=== PATIENT | female | born 1980 | race African-American/Black ===

== ENCOUNTER 2021-02-10 17:25 | Emergency (ER) | payer OTHER | END 2021-02-10 19:39 | disposition home or self-care (01) | LOC: FER 17:25 | DX: Z71.1 Person with feared health complaint in whom no diagnosis is made (principal); E11.9 Type 2 diabetes mellitus without complications; Z86.73 Personal history of transient ischemic attack (TIA), and cerebral infarction without residual deficits | CPT/HCPCS: 70450 ==

== ENCOUNTER 2021-05-24 12:00 | Emergency (ER) | payer OTHER ==
[2021-05-24] MEDS ORDERED: CEPHALEXIN500 MG PO (12:46)
== END 2021-05-24 13:24 | disposition home or self-care (01) ==
LOC: FER 12:00
DX: S61.012A Laceration without foreign body of left thumb without damage to nail, initial encounter (principal); E10.9 Type 1 diabetes mellitus without complications; Z23 Encounter for immunization; W26.8XXA Contact with other sharp object(s), not elsewhere classified, initial encounter; Y92.009 Unspecified place in unspecified non-institutional (private) residence as the place of occurrence of the external cause
CPT/HCPCS: 90471; 90715

== ENCOUNTER 2022-01-04 13:47 | Emergency (ER) | payer OTHER ==
[~2022-01-04 13:47] MED LIST: CEPHALEXIN500 MG PO
[2022-01-04 14:55] LABS: BASOPHIL 0.4 % (0-2); EOSINOPHIL 2.8 % (0-5); HCT 40.9 % (37.0-47.0); HGB 12.9 g/dl (12.5-16.0); LYMPHOCYTE 32.3 % (15-48); MCH 25.7 pg (25.0-31.0); MCHC 31.5 g/dL (32.0-36.0); MCV 81.6 fL (78.0-100.0); MONOCYTE 5.9 % (0-12); MPV 11.4 fL (6.0-9.5); NEUTROPHIL 58.3 % (41-80); NRBC 0; PLT 382 K/uL (150-400); RBC 5.01 M/uL (4.20-5.40); RDW 14.3 % (11.5-14.0); WBC 10.5 K/uL (4.0-10.5)
[2022-01-04 15:24] LABS: ALBUMIN 4.4 g/dL (3.4-5.0); BILIRUBIN - TOTAL 0.5 mg/dL (0.2-1.0); BUN/CREAT RATIO (CALC) 19.3 RATIO; CREATININE 0.88 mg/dL (0.51-0.95); GLOBULIN (CALCULATION) 4.2 g/dL; POTASSIUM 3.1 mmol/L (3.5-5.1); TOTAL PROTEIN 8.6 g/dL (6.4-8.2)
[2022-01-04 16:19] LABS: BILIRUBIN NEGATIVE (NEGATIVE); BLOOD NEGATIVE Ery/uL (NEGATIVE); CLARITY CLEAR (CLEAR); COLOR YELLOW (YELLOW); GLUCOSE (U) NORMAL (NORMAL); LEUKOCYTES NEGATIVE Leu/uL (NEGATIVE); NITRITE NEGATIVE (NEGATIVE); PROTEIN NEGATIVE (NEGATIVE); SPECIFIC GRAVITY <=1.005 (1.001-1.030); UROBILINOGEN 0.2 mg/dL (0.2-1.0)
[2022-01-04 18:24] LABS: CORONAVIRUS 2019 SARS-COV-2 NEGATIVE (NEGATIVE); INFLUENZA A NAA NEGATIVE (NEGATIVE)
[2022-01-04] MEDS ORDERED: AMOX TR-K CLV1 EAC4 PO (18:44)
== END 2022-01-04 19:43 | disposition home or self-care (01) ==
LOC: FER 13:47
PROVIDERS: Physician Assistant
DX: K52.9 Noninfective gastroenteritis and colitis, unspecified (principal); E87.6 Hypokalemia; I10 Essential (primary) hypertension; E11.9 Type 2 diabetes mellitus without complications; G43.909 Migraine, unspecified, not intractable, without status migrainosus; E78.5 Hyperlipidemia, unspecified; Z86.73 Personal history of transient ischemic attack (TIA), and cerebral infarction without residual deficits; Z79.02 Long term (current) use of antithrombotics/antiplatelets; Z79.4 Long term (current) use of insulin; Z79.899 Other long term (current) drug therapy; Z20.822 Contact with and (suspected) exposure to COVID-19
CPT/HCPCS: 36415; 80053; 81003; 83690; 85025; J7030; Q9967; U0002